=== PATIENT | male | born 1995 | race Caucasian/White ===

== ENCOUNTER 2016-07-16 23:03 | Emergency (ER) | payer OTHER ==
[2016-07-16 23:16] VITALS: RESP 16
--- NOTE | 2016-07-17 00:04 | EDPHY ---
H & P Time Seen by Provider: 07/16/16 23:54 HPI/ROS: CHIEF COMPLAINT: Right index finger laceration HISTORY OF PRESENT ILLNESS: 21-year-old male with up-to-date tetanus sustained accidental laceration right index finger from a piece of broken glass earlier this evening. No foreign body sensation. No paresthesia. PHYSICAL EXAM (Prior to examination, patient consented to physical exam, hands were washed and my usual and customary physical exam procedures followed) 1) GENERAL: Well-developed, well-nourished, alert and oriented. Appears to be in no acute distress. 2) HEAD: Normocephalic 3) HEENT: sclera anicteric 4) LUNGS: Breathing comfortably. 5) SKIN: right 2nd digit distal phalanx flap laceration measuring 2.5 cm. The flap appears to have viable tissue distally. 6) MUSCULOSKELETAL: flexion extension intact at the MCP PIP D IP. No shortening no malrotation. Normal cascading of digit 7) NEUROLOGIC: Full sensation two-point discrimination distally Smoking Status: Current some day smoker Constitutional: Initial Vital Signs Temperature (C) 36.4 C 07/16/16 23:12 Heart Rate 86 07/16/16 23:12 Respiratory Rate 16 07/16/16 23:12 Blood Pressure 132/70 H 07/16/16 23:12 O2 Sat (%) 92 07/16/16 23:12 O2 Delivery Mode Room Air Allergies/Adverse Reactions: cephalexin monohydrate [From Keflex] Allergy (Verified 04/26/14 02:10) PINE NUTS Allergy (Uncoded 02/17/12 22:24) Home Medications: Medication Instructions Recorded Albuterol 07/16/16 Flovent 110 MCG Hfa MDI (*) 07/16/16 Singulair 07/16/16 Doxycycline Hyclate 100 mg PO BID #10 capsule 07/17/16 MDM/Departure - MDM Diagnostics: Xray of the right index finger interpreted by myself: no definitive acute osseous abnormality, no radiopaque foreign body Procedures: Procedure: Laceration repair. I explained the indications, risks and benefits for both laceration repair and anesthetic administration. Verbal consent was obtained from the patient and parent. The laceration on the right index finger was anesthetized using 0.5% bupivicaine without epinephrine digital nerve block. After anesthetic administered the patient was observed for a period of time and had no apparent adverse effects. The wound was cleaned, prepped, draped in normal sterile fashion and explored to its base. No foreign body seen, no foreign bodies palpated. There were no deep structures involved. No tendon injury was identified. The wound was repaired with 4 simple interrupted 5 O Prolene suture. The wound repair was simple. The procedure was performed by myself. Patient has been informed that scarring will occur, although efforts have been made to minimize this. ED Course/Re-evaluation: Serial evaluations. Sutures to be removed in 10 days. Started on prophylactic doxycycline . He has a cephalosporin allergy. - Depart Disposition: Home, Routine, Self-Care Clinical Impression: Laceration of right index finger Condition: Good Instructions: Care For Your Stitches (ED), Laceration (ED) Additional Instructions: Return to the ER if you develop redness, swelling, discharge, warmth to the wound, red streaks going up your arm, or any other symptoms that concern you. Prescriptions: Doxycycline Hyclate 100 mg PO BID #10 capsule Referrals: Return, to the ER in 10 days for suture removal [Other] - 07/27/16
[2016-07-17] MEDS ORDERED: DOXYCYCLINE 100 MG PREPACK#2 BTL TAKEHOME ONE (00:58)
[2016-07-17 01:31] VITALS: BP 142/84; PULSE 80; TEMP 97.7; O2SAT 95
== END 2016-07-17 01:34 | disposition home or self-care (01) ==
PROC: 0HQFXZZ Repair Right Hand Skin, External Approach (ICD-10-PCS; principal; 2016-07-16)
DX: S61.210A Laceration without foreign body of right index finger without damage to nail, initial encounter (principal); F17.200 Nicotine dependence, unspecified, uncomplicated; W25.XXXA Contact with sharp glass, initial encounter

== ENCOUNTER 2016-07-30 00:08 | Emergency (ER) | payer OTHER ==
[2016-07-30 00:14] VITALS: BP 150/59; PULSE 104; RESP 16; TEMP 98.2; O2SAT 94
--- NOTE | 2016-07-30 00:41 | EDPHY ---
H & P Time Seen by Provider: 07/30/16 00:34 HPI/ROS: CHIEF COMPLAINT: Right great toe laceration HISTORY OF PRESENT ILLNESS: 21-year-old male with up-to-date tetanus sustained accidental laceration to his right medial great toe this evening when he accidentally impacted piece of broken glass. No paresthesia. No sensory motor deficit. No foreign body sensation. PHYSICAL EXAM (Prior to examination, patient consented to physical exam, hands were washed and my usual and customary physical exam procedures followed) 1) GENERAL: Well-developed, well-nourished, alert and oriented. Appears to be in no acute distress. 2) HEAD: Normocephalic 3) HEENT: sclera anicteric 4) LUNGS: Breathing comfortably. 5) SKIN: right medial great toe proximal aspect 3 cm well-demarcated laceration 6) MUSCULOSKELETAL: able to hold dorsiflexion against resistance at the MTP and IP joint 7) NEUROLOGIC: Full sensation distally Smoking Status: Former smoker Constitutional: Initial Vital Signs Temperature (C) 36.8 C 07/30/16 00:10 Heart Rate 104 H 07/30/16 00:10 Respiratory Rate 16 07/30/16 00:10 Blood Pressure 150/59 H 07/30/16 00:10 O2 Sat (%) 94 07/30/16 00:10 Allergies/Adverse Reactions: cephalexin monohydrate [From Keflex] Allergy (Verified 04/26/14 02:10) PINE NUTS Allergy (Uncoded 02/17/12 22:24) Home Medications: Medication Instructions Recorded Albuterol 07/16/16 Flovent 110 MCG Hfa MDI (*) 07/16/16 Singulair 07/16/16 Amoxicillin/Clavulanate Pot 875 mg PO BID #10 tab 07/30/16 [Augmentin 875 mg tab] MDM/Departure - MDM Diagnostics: Xray of the right great toe interpreted by myself: no definitive acute osseous abnormality , no radiopaque foreign body Procedures: Procedure: Laceration repair. I explained the indications, risks and benefits for both laceration repair and anesthetic administration. Verbal consent was obtained from the patient . The laceration on the great toe was anesthetized using 0.5% bupivicaine without epinephrine . After anesthetic administered the patient was observed for a period of time and had no apparent adverse effects. The wound was cleaned, prepped, draped in normal sterile fashion and explored to its base. No foreign body seen, no foreign bodies palpated. There were no deep structures involved. No tendon injury was identified. The wound was repaired with 5 simple interrupted 5 O Prolene sutures. The wound repair was simple. The procedure was performed by myself. Patient has been informed that scarring will occur, although efforts have been made to minimize this. Procedure: Splint A postop shoe splint was applied by ER avionics systems technician. After application of the splint I returned and re-examined the patient. The splint was adequately immobilizing the joint and distal to the splint the patient's circulation and sensation were intact. Patient shows no signs of compartment syndrome. Was given orthopedic precautions. ED Course/Re-evaluation: Patient has been re-evaluated with serial exams. He has been informed of the x- ray findings showing an equivocal 1 mm linear opacity on a single view of the x- ray. He has been informed that retained foreign bodies not ruled out. On exam the patient pre and post irrigation did not visualize or palpate any foreign bodies. I have recommended follow up with Podiatry. He is started on prophylactic antibiotics. Usual customary wound precautions provided. He has been placed in a postop shoe - Depart Disposition: Home, Routine, Self-Care Clinical Impression: Laceration of right great toe Qualifiers: Encounter type: initial encounter Damage to nail status: without damage Foreign body presence: without foreign body Qualified Code(s): S91.111A - Laceration without foreign body of right great toe without damage to nail, initial encounter Condition: Good Instructions: Care For Your Stitches (ED), Laceration (ED) Additional Instructions: Return to the ER if you develop redness, swelling, discharge, warmth to the wound, red streaks going up your leg, or any other symptoms that concern you. Prescriptions: Amoxicillin/Clavulanate Pot [Augmentin 875 mg tab] 875 mg PO BID #10 tab Referrals: Return, to the ER in 14 days for suture removal [Other] - As per Instructions Anaya Zafar DPM [Doctor of Podiatric Medicine] - 2-3 days, call for appt. (Dr Zafar is a type proof reproducer)
== END 2016-07-30 01:44 | disposition home or self-care (01) ==
PROC: 0HQMXZZ Repair Right Foot Skin, External Approach (ICD-10-PCS; principal; 2016-07-30)
DX: S91.111A Laceration without foreign body of right great toe without damage to nail, initial encounter (principal); Z87.891 Personal history of nicotine dependence; W25.XXXA Contact with sharp glass, initial encounter
CPT/HCPCS: L3260

== ENCOUNTER 2016-09-05 14:35 | Emergency (ER) | payer OTHER ==
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
[2016-09-05 17:53] VITALS: BP 136/86; PULSE 85; RESP 18; TEMP 98.4; O2SAT 98
== END 2016-09-05 17:54 | disposition home or self-care (01) ==
DX: S09.90XA Unspecified injury of head, initial encounter (principal); J45.909 Unspecified asthma, uncomplicated; Z87.891 Personal history of nicotine dependence; W22.8XXA Striking against or struck by other objects, initial encounter